=== PATIENT | male | born 1935 | race Caucasian/White ===

== ENCOUNTER 2018-03-25 12:10 | Inpatient (IN) | END 2018-03-29 18:25 | disposition home health service (06) | DRG 871 ==

== ENCOUNTER 2018-04-09 09:21 | Emergency (ER) | END 2018-04-09 11:02 | disposition home or self-care (01) ==

== ENCOUNTER 2018-04-15 10:30 | Emergency (ER) | END 2018-04-15 13:18 | disposition home or self-care (01) ==

== ENCOUNTER 2018-05-05 21:41 | Emergency (ER) | payer BC ==
[~2018-05-05] VITALS: Wt 64.5 kg
[~2018-05-05 21:41] MED LIST: ASPI-817 PO; CIPR2.5D11 BOTH EYES; CIPR500T4 PO; DOXA4TAB3 PO; FINA5TAB4 PO; FLUT1AER INH; IPRA3AMP29 HHN; LOVA-54 PO; PROM5SYR2 PO
[2018-05-06] MEDS ORDERED: UMEC1DIS INHALATION (00:26)
[2018-05-06] MEDS ORDERED: CEFTRIAXONE 1 GM/50 ML (PMX) 50 ML IVPB STA (00:28)
[2018-05-06] MEDS ORDERED: CEPH-443 PO (02:03)
--- NOTE | 2018-05-06 02:04 | ERD ---
ER Documentation Chief Complaint Chief Complaint bib self, cc: difficulty urinating, last time yesterday night HPI This is an 83-year-old male with a history of BPH, history of Lackey catheter, who presents for evaluation of decreased urinary output. He denies fever, denies vomiting, he had some leakage around his Lackey catheter, he has not noticed any blood. He is scheduled to follow-up with urologist this week. Symptoms have been going on for the last day. ROS All systems reviewed and are negative except as per history of present illness. Medications Home Meds Active Scripts Cephalexin* (Keflex*) 500 Mg Capsule, 500 MG PO QID for 7 Days, CAP Prov:HENNA HAHN MD 05/06/18 Reported Medications Umeclidinium Brm-Vilanterol Tr (Anoro Ellipta) 62.5-25 Mcg Disk.w.dev, 1 EACH INHALATION DAILY, #1 DISK 05/06/18 Aspirin* (Aspirin* EC) 81 Mg Tablet.dr, 81 MG PO DAILY, TAB 03/25/18 Lovastatin* (Altoprev*) 40 Mg Tab.sr.24h, 80 MG PO HS, TAB 03/25/18 Doxazosin Mesylate* (Doxazosin Mesylate*) 4 Mg Tablet, 4 MG PO HS, TAB 03/25/18 Discontinued Reported Medications Promethazine HCl/Codeine (Prometh-Codein 6.25-10 mg/5 ml) 5 Ml Syrup, 5 ML PO Q4H 03/25/18 Discontinued Scripts Ciprofloxacin Hcl* (Ciprofloxacin Hcl*) 500 Mg Tablet, 500 MG PO BID for 5 Days, TAB Prov:LEOLA LOPEZ DO 04/15/18 Fluticasone-Vilanterol (Breo Ellipta Inhaler) 100-25 Mcg/Actuation Aer.pow.ba, 1 INH INH DAILY for 30 Days, #1 INHALER 3 Refills Prov:ILIR BABIN 03/29/18 Finasteride* (Finasteride*) 5 Mg Tablet, 5 MG PO DAILY for 30 Days, TAB Prov:ILIR BABIN 03/29/18 Ciprofloxacin Hcl (Ciprofloxacin Hcl) 2.5 Ml Drops, 1 DROP BOTH EYES Q4, #1 BOTTLE Prov:ILIR BABIN 03/29/18 Ipratropium-Albuterol (Ipratropium-Albuterol) 0.5-3 Mg/3 Ml Ampul.neb, 3 ML HHN Q8 PRN for SHORTNESS OF BREATH, #90 Prov:ILIR BABIN 03/29/18 Allergies Allergies: Coded Allergies: No Known Allergy (Unverified , 05/06/18) PMhx/Soc History of Surgery: Yes (Hip Sx (2013)) Anesthesia Reaction: No Hx Neurological Disorder: No Hx Respiratory Disorders: Yes (COPD, PNEUMONIA 03/2018) Hx Cardiac Disorders: Yes (HTN, HYPERLIPIDEMIA) Hx Psychiatric Problems: No Hx Miscellaneous Medical Probl: Yes (BPH) Hx Alcohol Use: No Hx Substance Use: No Hx Tobacco Use: Yes Smoking Status: Current some day smoker Physical Exam Vitals Vital Signs Date Temp Pulse Resp B/P (MAP) Pulse Ox O2 O2 Flow FiO2 Time Delivery Rate 05/06/18 73 18 143/93 100 Room Air 02:21 (110) 05/05/18 98.2 89 19 143/69 100 21:44 (93) Physical Exam Const: No acute distress Head: Atraumatic Eyes: Normal Conjunctiva ENT: Normal External Ears, Nose and Mouth. Neck: Full range of motion. No meningismus. Resp: Clear to auscultation bilaterally Cardio: Regular rate and rhythm, no murmurs Abd: Soft, non tender, non distended. Normal bowel sounds, Lackey catheter with brownish urine noted, bag full. Skin: No petechiae or rashes Back: No midline or flank tenderness Ext: No cyanosis, or edema Neur: Awake and alert Psych: Normal Mood and Affect Result Diagram: 05/06/18 0050 05/06/18 0050 Results 24 hrs Laboratory Tests Test 05/05/18 23:38 05/06/18 00:50 Urine Color YELLOW Urine Clarity CLOUDY Urine pH 6.0 Urine Specific [place] 1.021 Urine Ketones TRACE mg/dL Urine Nitrite POSITIVE mg/dL Urine Bilirubin NEGATIVE mg/dL Urine Urobilinogen NEGATIVE mg/dL Urine Leukocyte Esterase 3+ Gee/ul Urine Microscopic RBC > 182 /HPF Urine Microscopic WBC > 182 /HPF Urine Bacteria FEW /HPF Urine Mucus FEW /HPF Urine Yeast (Budding) FEW /HPF Urine Hemoglobin 3+ mg/dL Urine Glucose NEGATIVE mg/dL Urine Total Protein 2+ mg/dl White Blood Count 8.1 10^3/ul Red Blood Count 3.61 10^6/ul Hemoglobin 11.3 g/dl Hematocrit 33.6 % Mean Corpuscular Volume 93.1 fl Mean Corpuscular Hemoglobin 31.3 pg Mean Corpuscular Hemoglobin Concent 33.6 g/dl Red Cell Distribution Width 14.0 % Platelet Count 157 10^3/UL Mean Platelet Volume 10.8 fl Immature Granulocytes % 0.200 % Neutrophils % 73.6 % Lymphocytes % 16.5 % Monocytes % 6.9 % Eosinophils % 2.4 % Basophils % 0.4 % Nucleated Red Blood Cells % 0.0 /100WBC Immature Granulocytes # 0.020 10^3/ul Neutrophils # 5.9 10^3/ul Lymphocytes # 1.3 10^3/ul Monocytes # 0.6 10^3/ul Eosinophils # 0.2 10^3/ul Basophils # 0.0 10^3/ul Nucleated Red Blood Cells # 0.0 10^3/ul Sodium Level 142 mmol/L Potassium Level 4.0 mmol/L Chloride Level 107 mmol/L Carbon Dioxide Level 25 mmol/L Anion Gap 10 Blood Urea Nitrogen 23 mg/dl Creatinine 0.81 mg/dl Est Glomerular Filtrat Rate mL/min mL/min Glucose Level 100 mg/dl Calcium Level 9.0 mg/dl Current Medications Medications Dose Sig/Nieves Start Time Status Last (Trade) Ordered Route PRN Stop Time Admin Dose Reason Admin Ceftriaxone 50 ml @ ONCE STAT 05/06/18 DC 05/06/18 Sodium 100 mls/hr IVPB 00:28 01:01 05/06/18 00:57 Procedures/MDM 83-year-old male presents for evaluation of decreased urinary output. His bladder scan showed approximately 30 cc of urine, appears to be draining well, no acute issues. Urinalysis showed pyuria, thus the patient was given ceftriaxone, and will be discharged with Keflex, for treatment of possible infection. I advised the patient to return for any signs of systemic illness such as fever, flank pain, or any worsening or concerning symptoms. At discharge the patient was smiling and in no acute distress. Departure Diagnosis: Primary Impression: Pyelonephritis Condition: Stable Patient Instructions: Pyelonephritis, Male (Adult) Additional Instructions: Return to this facility in 2 DAYS for a follow-up exam.Return sooner if your condition worsens. HENNA HAHN MD May 06, 2018 02:04
[2018-05-06 02:21] VITALS: BP 143/93; PULSE 73; RESP 18
== END 2018-05-06 02:22 | disposition home or self-care (01) ==
LOC: E/R 21:41
DX: N12 Tubulo-interstitial nephritis, not specified as acute or chronic (principal); I10 Essential (primary) hypertension; J44.9 Chronic obstructive pulmonary disease, unspecified; F17.210 Nicotine dependence, cigarettes, uncomplicated; Z79.82 Long term (current) use of aspirin
CPT/HCPCS: 80048; 81001; 85025; J0696; 36415; 96374